=== PATIENT | female | born 1935 | race Caucasian/White ===

== ENCOUNTER 2024-08-04 09:00 | Outpatient (RCR) | payer MEDICARE, OTHER, SELFPAY | END 2024-08-04 10:05 | disposition home or self-care (01) | LOC: HO.PT 09:00 | PROVIDERS: PCP Nurse Practitioner Adult Health; Visit Provider Nurse Practitioner Family | DX: R15.9 Full incontinence of feces (principal) | CPT/HCPCS: 97110; 97112; 97140; 97162 ==